=== PATIENT | female | born 1970 | race Caucasian/White ===

== ENCOUNTER → 2024-07-23 | Outpatient (CLI) | payer MEDICAID, SELFPAY ==
--- NOTE | 2024-07-23 13:30 | XR_ITS ---
Examination: Bilateral hips, AP pelvis, 5 views Technique: AP, lateral views both hips, AP pelvis, 5 views Exam date and time: July 23, 2024 1400 hours INDICATIONS: Bilateral hip pain beginning 5 years ago. FINDINGS: Moderate osteopenia No right or left hip fracture or dislocation No significant hip joint narrowing Bones of the pelvis intact IMPRESSION: No hip or pelvic fracture No significant hip arthritic change
--- NOTE | 2024-07-23 14:00 | XR_ITS ---
Examination: Screening digital mammography, bilateral Computer aided detection 3-D breast Tomosynthesis, bilateral Date and time of exam: July 23, 2024 1356 hours Compared to August 08, 2018 Indication: Screening Technique: Nonmagnified MLO, CC views of the breasts to been obtained, reconstructed from 3-D Tomosynthesis images. R2 computer aided detection program utilized for evaluation of suspicious masses and/or abnormal calcifications. 3-D Tomosynthesis images obtained. Findings: The breasts are heterogeneously dense, which may obscure small masses Benign calcifications No interval suspicious masses Impression: BI-RADS category II: Benign Findings. Recommend 1 year follow-up mammogram.
== END | disposition home or self-care (01) ==
PROVIDERS: PCP Orthopaedic Surgery Adult Reconstructive Orthopaedic Surgery; Referring Provider Nurse Practitioner; Visit Provider Nurse Practitioner
DX: Z12.31 Encounter for screening mammogram for malignant neoplasm of breast (principal); R92.323 Mammographic fibroglandular density, bilateral breasts; R92.1 Mammographic calcification found on diagnostic imaging of breast; M25.559 Pain in unspecified hip
CPT/HCPCS: 73523; 77063; 77067

== ENCOUNTER 2024-09-06 10:07 | Outpatient (AMB) | payer MEDICAID, SELFPAY ==
[2024-09-06 10:34] VITALS: BP 132/91; PULSE 77; RESP 17; TEMP 36.9; O2SAT 98; BMI 30.7
--- NOTE | 2024-09-06 10:34 | PD.ORTHCLVIS ---
Vital signs 09/06/24 10:34 Height 1.7 m Height Method Stated Weight 89.159 kg Weight Measurement Method Standing Scale BMI 30.7 BP 132/91 H Blood Pressure Source Automatic Cuff Blood Pressure Location Left Upper Arm Position Sitting Respiration 17 Pulse 77 Pulse Source Monitor Temp 98.4 F Temp Source Temporal Artery Scan Pulse Oximetry (%) 98 Oxygen Delivery Method Room Air Med/Allergies Allergies & Medications Allergies cephalexin (From Keflex) Allergy (Verified 09/06/24 10:36) Swelling of Lip/Tongue/Throat Exam Exam Patient is in no acute distress and is cooperative with the examination today. Breathing is nonlabored. In no respiratory distress. Patient has no paraspinal tenderness. Spinal deformity cannot be appreciated. The gait of the patient is nonantalgic Bilateral extremities were evaluated and demonstrates sensation intact to light touch. Palpable pedal pulses are present. No significant edema is present. Bilateral knees were examined and the patient has full strength and range of motion.. The left hip was examined. Patient was able to flex to 90 degrees, adduct to 30 degrees, abduct to 40 degrees, internally rotate to 20 degrees, and externally rotate to 20 degrees. Patient has a negative logroll. Stinchfield is negative. Patient is tender to palpation over the greater trochanter The right hip was examined. Patient was able to flex to 90 degrees, adduct to 30 degrees, abduct to 40 degrees, internally rotate to 20 degrees, and externally rotate to 20 degrees. Patient has a negative logroll. The stinchfield is negative.Patient is tender to palpation laterally on both hips Assessment and Plan Problem List (1) Trochanteric bursitis: Status: Acute Plan: Patient is a pleasant 53-year-old female with bilateral hip enteric bursitis. The x-rays showed no pathology or arthritis at all. She is extremely tender to palpation laterally we discussed that we could try anti-inflammatories, injections, and physical therapy. She wants to just anti-inflammatories today We will get her set up for injections Office Procedures GNS Level of Care Nursing/Assessment Patient Status: Initial/New Patient Nursing Assessment/Reassesment: Medication Reconciliation and Update PMH in EMR Coordination of Care: Complex Care and Chronic Disease 1-5, Consent,records obtained, informed consent, Education Simp Pt/Fam, 1 Ins Authorization, Lab and Imaging orders, Results/Orders obtained and Staff clarify orders New Patient Charge New Patient Point Assignment: 1104 New Patient Point Charge: AMORTIZATION SCHEDULE CLERK Level 3 ([id number]) MA Intake Visit Data Collection New Patient or Established: New Patient (never been to [facility]) Reason for Visit:: BILAT HIP PAIN Seen by Clinical Staff ONLY (RN/MA): No All Terrain Vehicle Racer Required: No PCP or OBGYN visit in last 3 months: Yes Hx Now: No Do You Feel Safe at Home: Yes Authorities Contacted: N/A Questionairres Past Medical History Past Medical History Have you ever been diagnosed with any of the following: Respiratory Problems Smoking: No Smoking Cessation Counseling: No Smoking Exposure: No Tobacco Use: No Subjective Visit Visit for: new patient and hip (BILATERAL HIP PAIN ) Immunization / Flu Flu Vaccine in the Last 12 Months: No Flu Vaccine Exclusion Criteria: Refused by Patient History of Present Illness Chief complaint: Bilateral hip pain Mery is a pleasant 53-year-old female with bilateral hip pain on the lateral aspect of both her hips. This has been ongoing for a while. She has not tried any treatment. Personal History Red flag PMH: none Pain Pain level (0-10): 10 Pain duration: DAILY Pain location: groin Pain quality: aching Pain timing: night and increases with activity Associated signs & symptoms: stiffness Ambulatory data Ambulatory device: none Walking distance (minutes): 5 Treatments Number of previous injections: 0 Number of Physical Therapy sessions: 0 Improvement with NSAIDS: n/a Review of Systems Review of Systems: All systems negative unless otherwise noted in HPI.
== END 2024-09-06 11:11 | disposition home or self-care (01) ==
LOC: HODSRG 10:07
PROVIDERS: PCP Physician Assistant; Referring Provider Physician Assistant; Supervising Provider Orthopaedic Surgery Adult Reconstructive Orthopaedic Surgery; Visit Provider Orthopaedic Surgery Adult Reconstructive Orthopaedic Surgery
DX: M70.62 Trochanteric bursitis, left hip (principal); M70.61 Trochanteric bursitis, right hip; M25.552 Pain in left hip; M25.551 Pain in right hip
CPT/HCPCS: 99203; G0463

== ENCOUNTER 2024-10-01 12:55 | Day surgery (SDC) | payer MEDICAID, SELFPAY ==
--- NOTE | 2024-09-28 09:05 | EKG_ITS ---
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
[2024-09-28 09:14] VITALS: BMI 32.5
[2024-09-28 09:37] LABS: Collection Type, Urine Clean Catch
[2024-09-28 11:29] LABS: Basophils # (Auto) 0.1 Thou/mm3 (0.0-0.2); Basophils % (Auto) 1 % (0-2.5); Eosinophils # (Auto) 0.4 Thou/mm3 (0.0-0.5); Eosinophils % (Auto) 5 % (0-10); Hematocrit 43.3 % (36.0-46.0); Hemoglobin 14.6 g/dL (12.0-16.0); Immature Granulocytes % (Auto) 0 % (0-0); Immature Granulocytes Auto 0.01 Thou/mm3 (0.00-0.00); Lymphocytes # (Auto) 2.8 Thou/mm3 (1.0-4.8); Lymphocytes % (Auto) 35 % (10-50); Mean Corpuscular HGB Conc 33.7 g/dl (31.0-37.0); Mean Corpuscular Hemoglobin 29.3 pg (25.0-35.0); Mean Corpuscular Volume 87 fL (80-100); Monocytes # (Auto) 0.8 Thou/mm3 (0.0-0.8); Monocytes % (Auto) 9 % (0-12); Neutrophils # (Auto) 4.1 Thou/mm3 (1.8-7.7); Neutrophils % (Auto) 50 % (37-80); Nucleated Red Blood Cell % 0 /100 WBC (0); Platelet Count 239 Thou/mm3 (140-440); RDW Standard Deviation 42.5 fL (36.4-46.3); Red Blood Count 4.99 Miln/mm3 (4.00-5.20); White Blood Count 8.2 Thou/mm3 (3.6-11.0)
[2024-09-28 11:35] LABS: Bilirubin,Urine Negative (Negative); Blood,Urine Negative (Negative); Clarity,Urine Clear (Clear/Hazy); Color,Urine Lt-Yellow (Lt Yel-Yel); Glucose, Urine Negative (Negative); Ketones,Urine Negative (Negative); Leukocyte Esterase,Urine Negative (Negative); Nitrite,Urine Negative (Negative); Protein,Urine Trace (Neg - Trace); RBC,Urine 7 /hpf (0-3); Specific Gravity,Urine 1.028 (1.001-1.035); Squamous Epithelial Cell,Urine 18 /hpf (0-5); Urobilinogen,Urine Negative mg/dL (0.0-1.0); WBC,Urine 4 /hpf (0-5)
[2024-09-28 11:42] LABS: Alanine Aminotransferase 15 U/L (10-49); Albumin/Globulin Ratio 1.4 (1.2-2.2); Alkaline Phosphatase 96 U/L (46-116); Anion Gap 7 (7-16); Aspartate Amino Transferase 15 U/L (0-34); BUN/Creatinine Ratio 22 Ratio (12-20); Bilirubin,Total 0.5 mg/dL (0.3-1.2); Blood Urea Nitrogen 20 mg/dL (9-23); Carbon Dioxide 29.7 mMol/L (20.0-31.0); Chloride 107 mMol/L (98-107); Creatinine (Component) 0.9 mg/dL (0.6-1.3); Estimated Creatinine Clearance 79.5 mL/min (>60); Globulin 2.9 gm/dL (2.3-3.5); Glucose 86 mg/dL (74-106); Osmolality,Calculated 288 (275-295); Partial Thromboplastin Time 25.9 Seconds (22.0-36.0); Potassium 3.7 mMol/L (3.4-5.1); Sodium 144 mMol/L (136-145); Total Protein 6.9 gm/dL (5.7-8.2); eGFR > 60 See Note
[2024-10-01] VITALS (7 sets, daily range): BP systolic 122–140; BP diastolic 77–87; PULSE 73–78; RESP 14–20; TEMP 36.1–36.3; O2SAT 94–96; BMI 32.3
--- NOTE | 2024-10-01 17:40 | PD.SUROPNT ---
Date of Procedure 10/01/24 Pre Op Diagnosis Painful mass in the back. Post Op Diagnosis Same. Procedure Excision of painful mass in the back on 10/01/2024 Findings This patient has a large back measures about 5 cm in diameter. This was excised. Is likely is an epidermoid cyst. Procedure Description This patient was interviewed in the preoperative area and the procedure was discussed in detail with the patient. Risk benefits and alternatives were discussed and informed consent was obtained regarding excision of any mass in the back. After that patient was taken to the operating room. General anesthesia was administered and patient is positioned in the prone position. Patient is given 900 mg of Cleocin because she is allergic to Keflex. The back is prepped and draped in usual manner. There is a previous incision scar over the mass. Local anesthesia lidocaine 1% with epinephrine is used. Curvilinear elliptical vertical incision is made and the flaps are developed on both the sides. The mass is excised in its entirety including the cyst wall. Hemostasis is achieved. Subtenons tissues approximated by 2-0 Vicryl and skin by 2-0 nylon interrupted sutures. Sterile dressing is applied. Estimated loss of blood less than 5 cc. Anesthesia GETA Drains None. Implants None. Pathology / specimen Other (Mass back) Estimated Blood Loss 5 Condition Stable Disposition PACU Surgeon Arturo Villatoro MD Surgical Staff Operation Date: 10/01/24 15:00 Case Staff Anesthesiologist: Richmond Smith ophthalmic surgical assistant with the student surgical technology Pan Ponce RN probation worker
--- NOTE | 2024-10-01 17:44 | SUR.PHASEI ---
pt received from OR in recovery bay 1. pt asleep but responds to voice, breathing unlabored on nc 4l. v/s stable. pt dressing to upper back cdi. report received from Dr. Smith and Pan PETTY.
--- NOTE | 2024-10-01 18:25 | SUR.PHASEII ---
pt able to tolerate oral fluids without difficulty swallowing or nausea/vomiting.
--- NOTE | 2024-10-01 18:42 | SUR.PHASEII ---
pt awake and alert, breathing unlabored on room air. v/s stable. pt dressing to mid upper back cdi. pt able to ambulate to wheelchair with steady gait. d/c instructions given with friend Zeina in room, all questions answered. pt d/c via wheelchair with all belongings.
== END 2024-10-01 18:42 | disposition home or self-care (01) ==
PROVIDERS: Referring Provider Specialist; Visit Provider Specialist
PROC: (CPT 11406; principal; 2024-10-01 14:45)
DX: L72.0 Epidermal cyst (principal); I10 Essential (primary) hypertension; Z79.899 Other long term (current) drug therapy
CPT/HCPCS: 11406; 36415; 80053; 81001; 85025; 85730; 93005; A4217; A4649; J0736; J1100; J2704; J3010; J3490

== ENCOUNTER → 2025-03-20 | Outpatient (CLI) | payer MEDICAID, SELFPAY ==
--- NOTE | 2025-03-20 09:37 | XR_ITS ---
Examination: Carotid arterial duplex scan, ultrasound. Date and time of exam: March 20, 2025, 1004 hours INDICATIONS: Carotid bruits on auscultation by physician 2 months ago Technique: Multiple sonographic images have been obtained of the carotid arteries and vertebral arteries, B-mode/grayscale imaging and Doppler spectral analysis and color flow Peak systolic and diastolic velocities have been recorded. Systolic diastolic ratios have been calculated. Findings: Right peak systolic velocities: Distal internal carotid artery peak systolic velocity is 0.7 M/sec Proximal internal carotid artery peak systolic velocity is 0.6 M/sec Carotid bifurcation peak systolic velocity is 0.7 M/sec External carotid artery peak systolic velocity is 0.6 M/sec Vertebral artery flow is antegrade. Left peak systolic velocities: Distal internal carotid artery peak systolic velocity is 0.8 M/sec Proximal internal carotid artery peak systolic velocity is 0.6 M/sec Carotid bifurcation peak systolic velocity is 0.7 M/sec External carotid artery peak systolic velocity is 0.6 M/sec Vertebral artery flow is antegrade Doppler waveform analysis demonstrates no spectral broadening Impression: Right internal carotid artery demonstrates 0 to 10% stenosis. Left internal carotid artery demonstrates 0 to 10% stenosis. Consider CTA carotid arteries postcontrast follow-up
--- NOTE | 2025-03-20 10:30 | XR_ITS ---
EXAMINATION: Renal sonography Renal Doppler sonographic evaluation of the renal arteries Date and time: March 20, 2025, 1125 hours INDICATIONS: Uncontrolled hypertension beginning 15 years ago. TECHNIQUE AND FINDINGS: Multiple sonographic images of the kidneys, assessment peak systolic arterial velocities renal arteries calculation of resistive indices and renal aortic ratios Right kidney 11.4 cm renal cortex 1.9 cm Left kidney 10.9 cm renal cortex 2.0 cm Small benign renal cyst Moderate renal scar formation No bilateral elevation of peak systolic velocities No bilateral abnormal resistive indices Bilateral normal renal aorta ratios IMPRESSION: Bilateral renal cortical thinning Moderate bilateral renal parenchymal scar formation No Doppler sonographic findings of renal artery stenosis
== END | disposition home or self-care (01) ==
PROVIDERS: PCP Physician Assistant Medical; Referring Provider Physician Assistant Medical; Visit Provider Physician Assistant Medical
DX: R09.89 Other specified symptoms and signs involving the circulatory and respiratory systems (principal); I1A.0 Resistant hypertension
CPT/HCPCS: 93880; 93975